=== PATIENT | female | born 1960 ===

== ENCOUNTER 2017-07-26 07:00 | Inpatient (IN) | payer OTHER ==
[~2017-07-26] VITALS: Ht 170.2 cm; Wt 93.1 kg
[~2017-07-26 07:00] MED LIST: AMBIEN10 MG PO; ATACAND32 MG PO; CIPROFLOXACIN750 MG PO; CLONAZEPAM1 MG PO; DOCUSATE SODIU100 MG PO; FOLBIC RF TABL1 EACH PO; LYRICA200 MG PO; METFORMIN HCL500 M1 PO; METHYLPRED4 MG/DOSE- PO; METROTREXATE PO; MILLIPRED DP5 M1 PO; NEURONTIN PO; NORVASC10 MG PO; PAXIL20 MG PO; PERCOCET 5/3251 TAB PO; SIMVASTATIN20 MG PO; SYNTHROID75 MCG PO; VITAMIN D2000 UNI1 PO; VOLTAREN-XR100 MG PO; XANAFLEX PO
[2017-08-02] MEDS ORDERED: DOCUSATE SODIU100 MG PO (11:27)
[2017-08-02] MEDS ORDERED: CLONAZEPAM1 MG PO (11:28)
[2017-08-02] MEDS ORDERED: PERCOCET 5-3251 EACH PO (11:28)
== END 2017-08-03 14:33 | disposition home or self-care (01) | DRG 472 ==
LOC: PED 08-02 05:08 → O/R 08-02 05:08 → SURH 08-02 07:00 → PED 08-02 13:42
PROVIDERS: Orthopaedic Surgery Orthopaedic Surgery of the Spine
PROC: 0RG20A0 Fusion of 2 or more Cervical Vertebral Joints with Interbody Fusion Device, Anterior Approach, Anterior Column, Open Approach (ICD-10-PCS; 2017-08-02)
PROC: 0RT30ZZ Resection of Cervical Vertebral Disc, Open Approach (ICD-10-PCS; principal; 2017-08-02 09:30)
DX: M47.12 Other spondylosis with myelopathy, cervical region (principal); M50.023 Cervical disc disorder at C6-C7 level with myelopathy; E11.9 Type 2 diabetes mellitus without complications; E03.8 Other specified hypothyroidism; M48.061 Spinal stenosis, lumbar region without neurogenic claudication; I10 Essential (primary) hypertension; M51.36 Other intervertebral disc degeneration, lumbar region